=== PATIENT | male | born 1940 | race Caucasian/White ===

== ENCOUNTER → 2024-09-19 09:32 | Outpatient (REF) | payer MEDICARE, OTHER, SELFPAY | LOC: RAD 09:32 | PROVIDERS: ATTENDING PHYSICIAN Physician Assistant; FAMILY PHYSICIAN Internal Medicine; REFERRING PHYSICIAN Urology | DX: R31.0 Gross hematuria (principal) | CPT/HCPCS: 74178; Q9967 ==